=== PATIENT | female | born 1950 | race Caucasian/White ===

== ENCOUNTER → 2016-10-30 | Outpatient (CLI) | payer BC ==
[~2016-10-30] MED LIST: AMLO5TAB2 PO; ASPI-999 PO; ATENOLOL; ATOR40TA70 PO; ENAL1TAB19 PO; ENAL1TAB8 PO; ENAL5TAB PO; IBUP100T46 PO; LEG CRAMPS PO; LISI1TAB6 PO; PRV20T; TRIA1TAB42
--- NOTE | 2016-10-31 10:33 | STRESS TEST ---
PROCEDURE PHYSICIAN: LITZY VENTURA EXERCISE MYOVIEW STRESS TEST REPORT DATE OF PROCEDURE: 10/30/2016 REFERRING PHYSICIAN: Dr. Webber. INDICATION FOR THE PROCEDURE: Shortness of breath. Baseline heart rate is 59, baseline blood pressure: 159/85. Baseline EKG: Sinus rhythm with no ischemic changes. SUMMARY: The patient was injected with 10.98 mCi of technetium 99 Myoview and the resting images were obtained. Then the patient started exercising with a baseline heart rate, blood pressure, EKG mentioned above. At minute 1 and 40 seconds, the patient was injected with 28.1 mCi of technetium 99 Myoview. She was able to finish 3 minutes on standard [place] protocol, achieving maximum heart rate of 142, which is 92% of maximum expected heart rate. With peak exercise level, EKG was showing minimal nondiagnostic changes. Blood pressure was 193/83. During recovery, heart rate and blood pressure returned to baseline. EKG returned to baseline. The resting and stress images were reviewed and compared in the short axis, horizontal long axis, and vertical long axis views. Review of the images showed breast attenuation affecting the quality of the images with mild ischemia involving the mid to apical anterior wall, anterolateral wall. SSS 5, SDS 5, TID value 0.98. On the gated images, the left ventricle appeared to be normal size with normal contractility. Calculated ejection fraction 63%. CONCLUSION: 1. Fair exercise tolerance a total of 3 minutes on standard Naga protocol. Total of 4.6 METs, achieving 92% of maximum expected heart rate. 2. Appropriate heart rate and blood pressure response to exercise. Returned to baseline during recovery. 3. Breast attenuation with mild ischemia involving the mid to apical anterior wall and anterolateral wall. 4. Normal left ventricular size with normal contractility. Calculated ejection fraction 63%. Job ID: [id number] Dictated Date: 10/30/2016 17:30:38 Asphalt Raker Date: 10/31/2016 10:27:53 / gloria
== END ==
LOC: CARD 10:57
PROVIDERS: ATTEND Internal Medicine Cardiovascular Disease
DX: R07.89 Other chest pain (principal); I10 Essential (primary) hypertension; E66.9 Obesity, unspecified; R06.02 Shortness of breath
CPT/HCPCS: 78452; 93017

== ENCOUNTER 2016-11-06 06:48 | Day surgery (SDC) | payer BC ==
[2016-11-06] VITALS (11 sets, daily range): BP systolic 112–150; BP diastolic 66–91
[~2016-11-06] VITALS: Ht 167.6 cm; Wt 84.8 kg
[~2016-11-06 06:48] MED LIST changes: -AMLO5TAB2 PO; -ASPI-999 PO; -ENAL1TAB8 PO; -ENAL5TAB PO; -IBUP100T46 PO; -LEG CRAMPS PO
[2016-11-06] MEDS ORDERED: LIDOCAINE 1% INJ 20 ML (XYLOCAINE) VIAL ONE (06:49)
[2016-11-06] MEDS ORDERED: HEParin (CATH LAB) 2,000 ML IV ONE (06:49)
[2016-11-06] MEDS ORDERED: NS IV 1000 ML 1,000 ML ONE (06:49)
[2016-11-06] MEDS ORDERED: NS IV 1000 ML 1,000 ML IV SCH ×2 (07:15→09:29)
[2016-11-06 07:19] LABS: MEAN PLATELET VOLUME 11.1 FL (7.4-10.4); RED BLOOD COUNT 4.57 10^6/uL (4.35-5.85); RED CELL DISTRIBUTION WIDTH 12.3 % (10.0-14.5); WHITE BLOOD COUNT 5.8 10^3/uL (4.3-11.0)
[2016-11-06 07:20] LABS: BILIRUBIN,URINE NEGATIVE (NEGATIVE); KETONES,URINE NEGATIVE (NEGATIVE); LEUKOCYTE ESTERASE ,URINE 3+ (NEGATIVE); NITRITE,URINE NEGATIVE (NEGATIVE); PH,URINE 5 (5-9); PROTEIN,URINE NEGATIVE (NEGATIVE); UROBILINOGEN,URINE NORMAL (NORMAL)
[2016-11-06 07:30] LABS: INR 0.9 (0.8-1.4); PROTHROMBIN TIME PATIENT 11.9 SEC (12.2-14.7)
--- NOTE | 2016-11-06 07:33 | Diagnostic Imaging Report ---
INDICATION: Preop. Heart catheter. Comparison with 02/12/2013. FINDINGS: The lungs are well-aerated and clear. The heart is mildly enlarged. No evidence of pulmonary edema. No pneumothorax or pleural effusion. IMPRESSION: Mild cardiomegaly with no acute changes. Dictated by: Dictated on workstation # [id number]
[2016-11-06 07:41] LABS: ALBUMIN 4.2 G/DL (3.2-4.5); BILIRUBIN,TOTAL 0.6 MG/DL (0.1-1.0); CALCIUM 9.3 MG/DL (8.5-10.1); CREATININE SERUM 0.94 MG/DL (0.60-1.30); POTASSIUM 4.1 MMOL/L (3.6-5.0); TOTAL PROTEIN 6.9 G/DL (6.4-8.2)
[2016-11-06] MEDS ORDERED: ASPI-999 PO (08:18)
[2016-11-06] MEDS ORDERED: LEG CRAMPS PO (08:18)
[2016-11-06] MEDS ORDERED: ENAL5TAB PO (08:18)
[2016-11-06] MEDS ORDERED: IBUP100T46 PO (08:18)
[2016-11-06] MEDS ORDERED: AMLO5TAB2 PO (08:18)
[2016-11-06] MEDS ORDERED: ENAL1TAB8 PO (08:32)
[2016-11-06] MEDS ORDERED: fentaNYL INJECTION 100 MCG/2 ML AMP ONE (08:48)
[2016-11-06] MEDS ORDERED: MIDAZOLAM 5 MG/5 ML (VERSED) VIAL ONE (08:48)
--- NOTE | 2016-11-06 08:58 | Cardiac Procedure Note-CS/ASA ---
Pre-Procedure Note Pre-Op Procedure Note H&P Reviewed The H&P was reviewed, patient examined and no changes noted. Date H&P Reviewed: Nov 06, 2016 Time H&P Reviewed: 08:57 Conscious Sedation Pre-Proced Time Reviewed: 08:57 ASA Class: 3 Airway Mallampati Classification: ([place] appropriate class) I. II. III, IV Lungs Heart ASA score ASA 1: a normal healthy patient ASA 2: a patient with a mild systemic disease (mid diabetes, controlled hypertension, obesity x ASA 3: a patient with a severe systemic disease that limits activity (angina , COPD, prior Myocardial infarction) ASA 4: a patient with an incapacitating disease that is a constant threat to life (CHF, renal failure) ASA 5: a moribund patient not expected to survive 24 hrs. (ruptured aneurysm) ASA 6: a declared brain patient whose organs are being harvested. For emergent operations, add the letter E after the classification Grade 3 Sedation Plan: Analgesia, Amnesia, Plan communicated to team members, Discussed options with patient/fam, Discussed risks with patient/fam Note The patient is an appropriate candidate to undergo the planned procedure, sedation, and anesthesia. The patient immediately re-assessed prior to indication. LITZY VENTURA MD Nov 06, 2016 08:57
[2016-11-06] MEDS ORDERED: PATIENT MAY USE OWN MEDS, ALL PO SCH (09:30)
--- NOTE | 2016-11-06 09:32 | Discharge Inst-Post CATH ---
Discharge Inst-CATH Post Cardiac Cath D/C Inst Follow Up/Plan Appointment with Dr Byrne's office in 2-4 weeks CARDIAC CATH DISCHARGE INSTRUCTIONS *Hold Metformin for 48 hours post heart cath. ACTIVITY * Go Home directly and rest. * Limit activity of the leg (or wrist if it was used) for 7 days including aerobics, swimming, jogging, bicycling, etc. * Restrict stair-climbing for 7 days if possible, if not, climb up with your non -cath leg, then bring together on the same step. * Avoid lifting, pushing, pulling or excessive movement of the affected extremity for 7 days. * Customary sexual activity may be resumed after 2 days-use caution not to use a position that strains or causes pain to the affected extremity. * No driving for 24 hours. * NO SMOKING. * Avoid straining for bowel movements for 7 days. * Gentle walking on level ground is allowed. * Returning to work will depend on the type of procedure and the results. Your doctor will discuss this with you. CALL YOUR DOCTOR FOR ANY OF THE FOLLOWING: *If bleeding from the puncture site occurs- Apply gentle pressure to site with clean cloth and call your doctor or EMS. * If a knot or lump forms under the skin, increases in size, or causes pain. * If bruising appears to be worsening or moving further down your leg instead of disappearing. * Temperature above 101 F. CARE OF YOUR GROIN INCISION; * Bruising or purple discoloration of the skin near the puncture site is common. * You may shower only, no bathtub bathing for 5 days. Be careful to avoid slipping as your leg may feel stiff. * If a closure device was used on your femoral artery, please see the attached guide regarding care of the device and your leg. * REMOVE the dressing from your groin the next day after your procedure in the shower. CARE OF YOUR WRIST INCISION; * Bruising or purple discoloration of the skin near the puncture site is common. * You may shower. * DO NOT submerge wrist. * Remove dressing in 24 hours. LITZY BYRNE MD Nov 06, 2016 09:32
--- NOTE | 2016-11-07 09:36 | CARDIAC CATHETERIZATION ---
DATE OF SERVICE: 11/06/2016 CARDIAC CATHETERIZATION REFERRING PHYSICIAN: Dr. Evita Webber BRIEF HISTORY: The patient is a 66-year-old lady with a history of coronary artery disease, hypertension, hyperlipidemia, has been having recurrent chest pain. Had an abnormal stress test. She was scheduled for cardiac catheterization. PROCEDURE NOTE: After explaining the procedure to the patient, all the pros and cons were explained, all questions were answered. The patient signed the consent and then she was placed on the cardiac catheterization laboratory. Right groin was prepped in a sterile fashion, local anesthesia applied to the right groin. A 6-[place] sheath was placed in the right femoral artery. Combination of right and left Michelle catheter were used to access the right and left coronary system. Multiple views were obtained. A pigtail catheter advanced into the left ventricular cavity. Pressure was measured. No left ventriculogram was done. At the end of the procedure, sheath was removed, MYNX device deployed, hemostasis achieved. FINDINGS: Hemodynamics: LV pressure 116/6, end diastolic pressure of 6, aortic pressure 114/53, mean of 79, no significant gradient across the aortic valve. TOTAL CONTRAST USED: 45 mL TOTAL RADIATION DOSE: 21 mGy ANATOMY: 1. Left main coronary artery is bifurcating into LAD and circumflex artery with no obstructive disease. 2. Left anterior descending in moderate in size with mild disease, no significant obstructive disease. 3. Right coronary artery is moderate is size with mild disease, no significant obstructive disease. 4. No left ventriculogram was done. Pressure was normal. IN CONCLUSION: 1. Mild coronary artery disease, no significant obstructive disease. 2. Normal left ventricular end diastolic pressure. DISCUSSION AND RECOMMENDATION: Medical therapy is recommended. No intervention is warranted. FINAL DIAGNOSES: 1. Chest pain nonspecific etiology. 2. Coronary artery disease. 3. Hypertension. 4. Hyperlipidemia. Job ID: [id number] DocumentID: [id number] Dictated Date: 11/06/2016 10:34:53 Indian Blanket Weaver Date: 11/06/2016 11:17:52 Dictated By: LITZY VENTURA MD
== END 2016-11-06 13:50 | disposition home or self-care (01) ==
LOC: CATH 06:48 → SURG 09:44 → CATH 13:50
PROVIDERS: ATTEND Internal Medicine Cardiovascular Disease
DX: R94.39 Abnormal result of other cardiovascular function study (principal); R07.89 Other chest pain; I25.10 Atherosclerotic heart disease of native coronary artery without angina pectoris; I10 Essential (primary) hypertension; E78.5 Hyperlipidemia, unspecified; R06.02 Shortness of breath; E66.9 Obesity, unspecified; Z79.899 Other long term (current) drug therapy; Z82.49 Family history of ischemic heart disease and other diseases of the circulatory system; Z68.30 Body mass index [BMI] 30.0-30.9, adult
CPT/HCPCS: 36415; 71010; 80053; 80061; 81000; 85027; 85610; 85730; 87081; 87088; 93005; 93458

== ENCOUNTER → 2016-12-04 | Outpatient (CLI) | payer BC ==
[~2016-12-04] MED LIST changes: +AMLO5TAB2 PO; +ASPI-999 PO; +ENAL1TAB8 PO; +ENAL5TAB PO; +IBUP100T46 PO; +LEG CRAMPS PO
--- NOTE | 2016-12-04 16:40 | Diagnostic Imaging Report ---
PROCEDURE: MRI right joint lower extremity without contrast. TECHNIQUE: Multiplanar, multisequence non contrast-enhanced MRI of the right lower extremity was accomplished. INDICATION: Weakness. Lateral right knee swelling. FINDINGS: There is a small to moderate suprapatellar effusion. There is no Galeas's cyst. The extensor mechanism demonstrates mild tendinosis in the distal quadriceps tendon with no high-grade tear. The ACL and the PCL are intact. There is a complex tear involving the body of the lateral meniscus with extension into the adjacent aspect of the posterior and anterior horns. The medial meniscus demonstrates a focal radial tear involving the body of the meniscus. The lateral collateral ligament complex and the MCL appear unremarkable. There is a ganglion cyst seen around the popliteus tendon measuring 1.8 x 0.9 x 0.7 cm. The muscle signal around the knee however appears unremarkable. There is about 75% cartilage thinning in the lateral compartment most prominent posteriorly. The medial compartment demonstrates mild to moderate thinning with cartilage fissuring. The patellofemoral compartment demonstrates moderate thinning of the cartilage involving the medial facets. The lateral facet of the patella has a relatively preserved cartilage. No significant bone marrow contusion. There is a 6 mm cystic change however seen in the medial tibial plateau posteriorly near the insertion of the PCL and the posterior root of the medial meniscus. IMPRESSION: 1. Complex tear involving the body of the lateral meniscus and the adjacent portions of the posterior and anterior horns. 2. Focal radial tear in the body of the medial meniscus. 3. Osteoarthritis changes with areas of cartilage thinning as described. Dictated by: Dictated on workstation # [id number]
== END ==
LOC: RAD 15:15
PROVIDERS: ATTEND Family Medicine
DX: M23.241 Derangement of anterior horn of lateral meniscus due to old tear or injury, right knee (principal); M23.251 Derangement of posterior horn of lateral meniscus due to old tear or injury, right knee; M17.11 Unilateral primary osteoarthritis, right knee
CPT/HCPCS: 73721

== ENCOUNTER → 2017-02-06 | Outpatient (CLI) | payer BC ==
--- NOTE | 2017-02-12 12:15 | Diagnostic Imaging Report ---
Bilateral screening mammogram 2D views with tomosynthesis The current study was also evaluated with a Computer Aided Detection (CAD) system. INDICATION: Screening. No current complaints stated on the questionnaire. COMPARISON: 08/04/15 FINDINGS: The breasts are composed of scattered fibroglandular densities. Benign-appearing calcifications are seen in right breast upper aspect. Allowing for technique and positional differences, no suspicious change is seen. IMPRESSION: No significant change. ACR BI-RADS Category 2: Benign findings. Result letter will be mailed to the patient. Note: At least 10% of breast cancer is not imaged by mammography. Dictated by: Dictated on workstation # [id number]
== END ==
LOC: RAD 09:48
PROVIDERS: ATTEND Nurse Practitioner Family
DX: Z12.31 Encounter for screening mammogram for malignant neoplasm of breast (principal)
CPT/HCPCS: 77067

== ENCOUNTER 2017-11-17 09:00 | Outpatient (CLI) | payer BC ==
[~2017-11-17] VITALS: Ht 167.6 cm; Wt 84.8 kg
[2017-11-17] MEDS ORDERED: ATOR40TA70 PO (09:11)
== END 2017-11-17 09:15 ==
LOC: PREOP 09:00
PROVIDERS: ATTEND Internal Medicine
DX: Z01.818 Encounter for other preprocedural examination (principal); Z12.11 Encounter for screening for malignant neoplasm of colon

== ENCOUNTER 2017-11-21 08:40 | Day surgery (SDC) | payer MEDICARE, OTHER ==
--- NOTE | 2017-11-07 13:42 | HISTORY AND PHYSICAL ---
DATE OF SERVICE: SCREENING COLONOSCOPY SUMMARY HISTORY OF PRESENT ILLNESS: Mrs. aDle is a 67-year-old white female, referred by Dr. Webber for screening colonoscopy. She had had one previous colonoscopy done in 2011, at which time she had one tubular adenoma removed from the proximal ascending colon. She also had a hyperplastic polyp removed from the rectosigmoid junction and an inflammatory polyp removed from the mid transverse colon. She is not aware of any family history for colon cancer. She reports that she has otherwise been feeling well and voiced no complaints. She has noted no bright red blood per rectum or melena, has had no abdominal pain. Denies bowel habit change. PAST MEDICAL HISTORY: Significant for hypertension and hyperlipidemia with no known history of coronary artery disease. MEDICATIONS ON ADMISSION: Include atorvastatin 40 mg daily, enalapril/hydrochlorothiazide 5/12.5 mg daily and a baby aspirin daily, and she is also taking amlodipine unknown dose daily. She underwent cardiac catheterization per her report in October of 2016, which revealed no evidence for obstruction and preserved systolic function. PAST SURGICAL HISTORY: In November 2016, she underwent arthroscopic surgery of her right knee for meniscal tear. She apparently has significant arthritis and was recommended that she consider total knee replacement that she has been holding off. FAMILY HISTORY: She recently lost her sister at the age of 62 secondary to alcohol-related cirrhosis complications. She had a brother who at the age of 11 secondary to leukemia. 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 PHYSICAL EXAMINATION: GENERAL: Reveals a well appearing white female, in no acute distress. VITAL SIGNS: Weight is 187 pounds, unchanged from six years ago. Blood pressure 120/80, heart rate 72 and regular. HEENT: Unremarkable. She has a Mallampati class 2 oropharyngeal configuration with no evidence for erythema. NECK: Revealed no JVD, adenopathy or bruits. CHEST: Clear to auscultation. CARDIOVASCULAR: Reveals a regular rate and rhythm without murmur, S3 or S4. ABDOMEN: Soft, supple without mass, organomegaly or tenderness. No bruits are noted and bowel sounds are noted in all four quadrants. EXTREMITIES: Reveal no cyanosis, clubbing or edema. ASSESSMENT: The patient was set up for screening colonoscopy on 11/21/2016. Prep instructions with Suprep kit were given and questions were answered. She is to abstain from aspirin starting today and continue her other medications unchanged. I thank you for the referral of this pleasant lady. Job ID: [id number] DocumentID: [id number] Dictated Date: 11/07/2017 12:27:32 Breaker Machine Tender Date: 11/07/2017 13:23:36 Dictated By: AYSE FINCH MD
[~2017-11-21] VITALS: Ht 167.6 cm; Wt 84.8 kg
[2017-11-21] MEDS ORDERED: LACTATED RINGERS 1,000 ML IV ONE (09:01)
[2017-11-21] MEDS ORDERED: LACTATED RINGERS 1,000 ML IV SCH (09:15)
[2017-11-21 09:20] VITALS: BP 157/86
[2017-11-21] MEDS ORDERED: LIDOCAINE JELLY 2% (XYLOCAINE) 5 ML TUBE ONE (09:30)
[2017-11-21] MEDS ORDERED: PROPOFOL INJECTION 50 ML IV ONE (09:32)
--- NOTE | 2017-11-21 09:35 | Pre-Op Note & Conscious Sedat ---
Pre-Operative Progress Note H&P Reviewed The H&P was reviewed, patient examined and no changes noted. Date H&P Reviewed: November 21, 2017 Time H&P Reviewed: 09:35 Conscious Sedation Pre-Proced ASA Class: 2 Airway Mallampati Classification: ([place] appropriate class) I. II. III, IV Lungs Heart ASA score ASA 1: a normal healthy patient ASA 2: a patient with a mild systemic disease (mid diabetes, controlled hypertension, obesity ASA 3: a patient with a severe systemic disease that limits activity (angina , COPD, prior Myocardial infarction) ASA 4: a patient with an incapacitating disease that is a constant threat to life (CHF, renal failure) ASA 5: a moribund patient not expected to survive 24 hrs. (ruptured aneurysm) ASA 6: a declared brain patient whose organs are being harvested. For emergent operations, add the letter E after the classification Grade 2 Sedation Plan: Analgesia, Amnesia, Plan communicated to team members, Discussed options with patient/fam, Discussed risks with patient/fam Note The patient is an appropriate candidate to undergo the planned procedure, sedation, and anesthesia. The patient immediately re-assessed prior to indication. AYSE FINCH MD November 21, 2017 09:35
[2017-11-21 10:30] VITALS: BP 155/92
[2017-11-21] MEDS ORDERED: LIDOCAINE JELLY 2% (XYLOCAINE) 5 ML TUBE TOP ONE (10:30)
--- NOTE | 2017-11-21 10:30 | Anesthesia-General Post-Op ---
MAC Patient Condition Mental Status/LOC: Same as Preop Cardiovascular: Satisfactory Nausea/Vomiting: Absent Respiratory: Satisfactory Pain: Controlled Complications: Absent Post Op Complications Complications None Follow Up Care/Instructions Patient Instructions None needed. Anesthesiology Discharge Order Discharge Order Patient is doing well, no complaints, stable vital signs, no apparent adverse anesthesia problems. No complications reported per nursing. HAMMAD VINSON CRNA November 21, 2017 10:29
[2017-11-21 11:00] VITALS: BP 154/85
[2017-11-21 11:22] VITALS: BP 154/85
--- NOTE | 2017-11-21 19:07 | OPERATIVE REPORT ---
DATE OF SERVICE: 11/21/2017 COLONOSCOPY SUMMARY INDICATION FOR THE PROCEDURE: Screening colonoscopy. The patient was placed in the left lateral decubitus position. Prior to undergoing colonoscopy, a digital rectal evaluation was performed. The anal sphincter tone was normal and the perianal reflexes intact. No abnormalities noted on digital inspection of anal canal or distal rectal vault. The colonoscope was then inserted into the rectum and under direct visualization advanced to the cecum. The cecum was identified by identification of the ileocecal valve and cecal strap. Photographic documentation was obtained. Careful inspection was made as the colonoscope was withdrawn. FINDINGS: There is no evidence for internal or external hemorrhoids. Present in the distal rectum was a 3 mm sessile hyperplastic appearing polyp. It was biopsied, ablated and submitted for histopathology. The remainder of the rectum, sigmoid colon, descending colon, splenic flexure, transverse colon, hepatic flexure, ascending colon and cecum were unremarkable without evidence for diverticular disease. ASSESSMENT: One diminutive hyperplastic polyp was removed via hot forceps with ablation from the distal rectum. This was an otherwise normal colonoscopy to the cecum. Would advocate consideration for repeat screening colonoscopy in 10 years. Thank you for the referral of this pleasant lady. Job ID: [id number] DocumentID: [id number] Dictated Date: 11/21/2017 11:50:28 Socket Welder Helper Date: 11/21/2017 19:06:28 Dictated By: AYSE FINCH MD
== END 2017-11-21 11:22 | disposition home or self-care (01) ==
LOC: ENDO 08:40
PROVIDERS: ATTEND Internal Medicine
DX: Z12.11 Encounter for screening for malignant neoplasm of colon (principal); K62.1 Rectal polyp; I10 Essential (primary) hypertension; I34.0 Nonrheumatic mitral (valve) insufficiency; Z79.899 Other long term (current) drug therapy
CPT/HCPCS: 88305

== ENCOUNTER → 2018-11-23 | Outpatient (CLI) | payer MEDICARE, OTHER ==
[~2018-11-23] MED LIST changes: -AMLO5TAB2 PO; +AMLO5TAB9 PO
--- NOTE | 2018-11-23 12:44 | Diagnostic Imaging Report ---
INDICATION: Routine screening. COMPARISON: 02/06/2017 and 08/04/2015. TECHNIQUE: 2D and 3D bilateral screening mammography was performed with CAD. FINDINGS: Scattered fibroglandular densities are identified bilaterally. The partially calcified nodule in the upper right breast is stable. No new masses or malignant appearing microcalcifications are seen. The axillae are unremarkable. IMPRESSION: No mammographic features suspicious for malignancy are identified. ACR BI-RADS Category 2: Benign findings. Result letter will be mailed to the patient. Note: At least 10% of breast cancer is not imaged by mammography. Dictated by: Dictated on workstation # [id number]
== END ==
LOC: RAD 08:25
PROVIDERS: ATTEND Nurse Practitioner Family
DX: Z12.31 Encounter for screening mammogram for malignant neoplasm of breast (principal)
CPT/HCPCS: 77067

== ENCOUNTER → 2020-02-02 | Outpatient (CLI) | payer MEDICARE, OTHER ==
[~2020-02-02] MED LIST changes: -ENAL5TAB PO; +ENLP5T PO
--- NOTE | 2020-02-03 09:29 | Diagnostic Imaging Report ---
INDICATION: Routine screening. Comparison is made with prior mammogram 11/23/2018 and 02/06/2017. 2-D and 3-D bilateral screening mammography was performed with CAD. Both breasts remain heterogeneously dense, limiting the sensitivity of mammography. Calcified nodule in the upper right breast is stable. No new mass or malignant appearing microcalcifications are identified. Axillae are unremarkable. IMPRESSION: BI-RADS Category 2 No mammographic features suspicious for malignancy are identified. ACR BI-RADS Category 2: Benign findings. Result letter will be mailed to the patient. Note: At least 10% of breast cancer is not imaged by mammography. Dictated by: Dictated on workstation # [id number]
== END ==
LOC: RAD 15:05
PROVIDERS: ATTEND Family Medicine
DX: Z12.31 Encounter for screening mammogram for malignant neoplasm of breast (principal)
CPT/HCPCS: 77063; 77067

== ENCOUNTER → 2021-02-21 | Outpatient (CLI) | payer MEDICARE, OTHER ==
[~2021-02-21] MED LIST changes: +AMLO-250 PO; -AMLO5TAB9 PO
--- NOTE | 2021-02-21 12:10 | Diagnostic Imaging Report ---
INDICATION: Routine screening. Comparison is made with prior mammogram from 02/02/2020 and 11/23/2018. 2-D and 3-D bilateral screening mammography was performed with CAD. Both breast are heterogeneously dense, limiting the sensitivity of mammography. The parenchymal pattern is stable. There are benign calcifications. No mass or malignant-appearing microcalcifications are seen. Axillae are unremarkable. IMPRESSION: BI-RADS Category 2 No mammographic features suspicious for malignancy are identified. ACR BI-RADS Category 2: Benign findings. Result letter will be mailed to the patient. Note: At least 10% of breast cancer is not imaged by mammography. Dictated by: Dictated on workstation # [id number]
== END ==
LOC: RAD 09:33
PROVIDERS: ATTEND Nurse Practitioner Family
DX: Z12.31 Encounter for screening mammogram for malignant neoplasm of breast (principal)
CPT/HCPCS: 77063; 77067

== ENCOUNTER → 2022-04-02 | Outpatient (CLI) | payer MEDICARE, OTHER ==
[~2022-04-02] MED LIST changes: +ENAL1TAB14 PO; -ENAL1TAB8 PO
--- NOTE | 2022-04-02 12:53 | Diagnostic Imaging Report ---
Indication: Routine screening. Comparison is made with prior mammogram from 02/21/2021 and 02/02/2020. 2-D and 3-D bilateral screening mammography was performed with CAD. Both breasts are heterogeneously dense, limiting the sensitivity of mammography. The parenchymal pattern is stable. Calcified nodule in the upper right breast is stable. No new mass or malignant appearing microcalcifications are seen. Axillae are unremarkable. IMPRESSION: BI-RADS Category 2 No mammographic features suspicious for malignancy are identified. ACR BI-RADS Category 2: Benign findings. Result letter will be mailed to the patient. Note: At least 10% of breast cancer is not imaged by mammography. Dictated by: Dictated on workstation # [id number]
--- NOTE | 2022-04-02 15:43 | Diagnostic Imaging Report ---
INDICATION: Postmenopausal state COMPARISON: None available, baseline examination. FINDINGS: AP Spine L1-L4: [BMD (g/cm2): 0.862] [T-Score: -2.8] [Z-Score: -1.8] [BMD Previous: n/a] [BMD % Change: n/a] LT Hip Neck: [BMD (g/cm2): 0.732] [T-Score: -2.2] [Z-Score: -0.9] LT Hip Total: [BMD (g/cm2):0.702] [T-Score:-2.4] [Z-Score: -1.4] [BMD Previous: n\a] [BMD % Change: n\a] RT Hip Neck: [BMD (g/cm2):0.737] [T-Score:-2.2] [Z-Score:-0.9] RT Hip Total: [BMD (g/cm2):0.690] [T-score:-2.5] [Z-Score:-1.5] [BMD Previous:n/a] [BMD % Change:n/a] *Indicates significant change from prior examination based on 95% confidence level. World Health Organization criteria for BMD interpretation classify patients as Normal (T-score at or above -1.0), Osteopenic (T-score between -1.0 and -2.5) or Osteoporotic (T-score at or below -2.5). LIMITATIONS AND MODIFICATION: None. FRACTURE RISK (FRAX SCORE): FRAX score is not calculated given underlying osteoporosis. IMPRESSION: 1. Osteoporosis. 2. Baseline examination. 3. See below National Osteoporosis Foundation guidelines on when to potentially initiate pharmacologic therapy. Based on the National Osteoporosis Foundation Guidelines, pharmacologic treatment should be initiated in any of the following, unless clinical conditions suggest otherwise: * Any patient with prior fragility fracture of the hip or vertebrae. A spine fracture indicates 5X risk for subsequent spine fracture and 2X risk for subsequent hip fracture. * Osteoporosis (T-score <-2.5). * Postmenopausal women and men age 50 and older with low bone mass/osteopenia (T-score between -1.0 and -2.5) by DXA and 10-year major osteoporotic fracture greater than 20% or a 10-year probability of hip fracture greater than 3%. These fracture risks are supplied above in the FRAX score, if applicable. * Clinician judgement and/or patient preferences may indicate treatment for people with 10-year fracture probabilities above or below these levels. Dictated by: Dictated on workstation # [id number]
== END ==
LOC: RAD 09:16
PROVIDERS: ATTEND Nurse Practitioner Family
DX: Z12.31 Encounter for screening mammogram for malignant neoplasm of breast (principal); Z78.0 Asymptomatic menopausal state; M81.0 Age-related osteoporosis without current pathological fracture
CPT/HCPCS: 77063; 77067; 77080

== ENCOUNTER → 2023-05-26 | Outpatient (CLI) | payer MEDICARE ==
[~2023-05-26] MED LIST changes: +ENAL-66 PO; -ENLP5T PO
--- NOTE | 2023-05-26 16:36 | Diagnostic Imaging Report ---
INDICATION: Routine screening. COMPARISON: 04/02/2022 and 02/21/2021. TECHNIQUE: 2D and 3D bilateral screening mammography was performed with CAD. FINDINGS: The calcified nodule in the upper right breast is stable. No new mass or malignant-appearing microcalcifications are identified. The axillae are unremarkable. IMPRESSION: No mammographic features suspicious for malignancy are identified. ACR BI-RADS Category 2: Benign findings. Result letter will be mailed to the patient. Note: At least 10% of breast cancer is not imaged by mammography. Dictated by: Dictated on workstation # [id number]
== END ==
LOC: RAD 10:11
PROVIDERS: ATTEND Family Medicine
DX: Z12.31 Encounter for screening mammogram for malignant neoplasm of breast (principal)
CPT/HCPCS: 77063; 77067

== ENCOUNTER 2023-06-11 05:44 | Outpatient (CLI) | payer MEDICARE ==
[~2023-06-11] VITALS: Ht 167.7 cm; Wt 90.5 kg
--- NOTE | 2023-06-11 06:30 | HISTORY AND PHYSICAL ---
COLONOSCOPY HISTORY AND PHYSICAL HISTORY OF PRESENT ILLNESS: The patient 72-year-old white female referred for screening colonoscopy. She has positive family history for colon cancer, index case being a cousin recently diagnosed with stage IV colon cancer per her report. She also has a past history of colon polyps. Her last performed colonoscopy on her [id number] years ago, at which time she had a hyperplastic polyp removed from the distal rectum. Previous colonoscopy in 2011, she had several tubular adenomas removed. She denies bright red blood per rectum, melena, change in bowel habits, change in weight or abdominal pain. PAST MEDICAL HISTORY: Significant for hypertension and hyperlipidemia with no known history of coronary disease. FAMILY HISTORY: As noted in the HPI. PAST SURGICAL HISTORY: She underwent arthroscopic surgery for right meniscal tear repair in 11/2016. FAMILY HISTORY: As noted in the HPI. She had a sister who at the age 62 of alcohol-related cirrhotic complications and had a brother who at the age of 11 secondary to leukemia. 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 No significant alcohol consumption. REVIEW OF SYSTEMS: CONSTITUTIONAL: Denies night sweats, chills, fever or change in weight. PULMONARY: Denies cough, wheezing or shortness of breath. CARDIOVASCULAR: Denies chest pain, orthopnea, PND, pedal edema or syncope. GASTROINTESTINAL: As noted in the HPI. PHYSICAL EXAMINATION: GENERAL: Reveals a pleasant white female, appeared to be in no acute distress. VITAL SIGNS: Weight 199 pounds, blood pressure 120/70, heart rate 70 and regular. HEENT: Unremarkable. Sclerae nonicteric. No evidence for pallor. CHEST: Clear to auscultation. CARDIOVASCULAR: Reveals regular rate and rhythm without murmur, S3, or S4. ABDOMEN: Reveals no mass, organomegaly, or tenderness. Bowel sounds are positive. No bruits noted. ASSESSMENT AND PLAN: The patient is being set up for screening colonoscopy. Past history of adenomatous colon polyps and a family history for colon cancer, index case being a cousin, recently diagnosed with stage IV colon cancer. Prep instructions were given and questions were answered. I thank you for the referral of this pleasant lady. Job ID: [id number] DocumentID: [id number] Dictated Date: 05/26/2023 17:22:28 Short Goods Drier Date: 05/26/2023 17:42:00 Dictated By: AYSE FINCH MD
== END 2023-06-16 12:20 | disposition home or self-care (01) ==
LOC: PREOP 05:44
PROVIDERS: ATTEND Internal Medicine
DX: Z01.818 Encounter for other preprocedural examination (principal)

== ENCOUNTER 2023-06-20 07:12 | Day surgery (SDC) | payer MEDICARE, OTHER ==
[~2023-06-20] VITALS: Ht 167.7 cm; Wt 90.5 kg
[2023-06-20] MEDS ORDERED: LACTATED RINGERS 1,000 ML 1,000 ML IV STA (07:13)
--- NOTE | 2023-06-20 07:31 | Pre-Op Note & Conscious Sedat ---
Pre-Operative Progress Note Date H&P Reviewed: Jun 20, 2023 Time H&P Reviewed: 07:30 History & Physical: H&P Reviewed, Patient Examed, No changes noted Pre-Op Diagnosis: screening Moderate Sedation PreProcedure ASA Score 2 Airway Lungs Heart ASA score ASA 1: a normal healthy patient ASA 2: a patient with a mild systemic disease (mid diabetes, controlled hypertension, obesity ASA 3: a patient with a severe systemic disease that limits activity (angina, COPD, prior Myocardial infarction) ASA 4: a patient with an incapacitating disease that is a constant threat to life (CHF, renal failure) ASA 5: a moribund patient not expected to survive 24 hrs. (ruptured aneurysm) ASA 6: a declared brain- patient whose organs are being harvested. For emergent operations, add the letter E after the classification Mallampati Classification Grade 2 Sedation Plan Analgesia, Amnesia, Plan communicated to team members, Discussed options with patient/fam, Discussed risks with patient/fam The patient is an appropriate candidate to undergo the planned procedure, sedation, and anesthesia. The patient immediately re-assessed prior to indication. AYSE FINCH MD Jun 20, 2023 07:31
[2023-06-20 07:48] VITALS: BP 137/66
[2023-06-20 08:35] VITALS: BP 103/57
--- NOTE | 2023-06-20 08:36 | Progress Note-Post Operative ---
Post-Procedure Note Physician (s)/Service Desk Technician (s) Physician AYSE FINCH MD Pre-Procedure Diagnosis Pre-Procedure Diagnosis: screening Post-Procedure Diagnosis Post-operative diagnosis: Prior to undergoing colonoscopy digital rectal evaluation was performed. Anal sphincter tone was normal and the perianal reflexes intact. No abnormalities noted on digital inspection of the anal canal or distal rectal vault. The colonoscope was then inserted into the rectum and under direct visualization advanced to the cecum. The cecum was identified by identification of the ileocecal valve and cecal strap. Photographic documentation was obtained. A careful inspection was made as the colonoscope withdrawn. The quality the prep was good. Findings: There are no evidence for internal or external hemorrhoids and the rectum was unremarkable. Several medium sized diverticula were noted in the proximal sigmoid colon without evidence for diverticulitis no other abnormalities are noted. The descending colon splenic flexure transverse colon hepatic flexure ascending colon and cecum were unremarkable with no evidence for neoplasia. A/P 1. Several medium sized diverticulum were noted in the proximal sigmoid colon with an otherwise normal colonoscopy to the cecum. Considering currently that there is only 1 reported second-degree relative with colon cancer would advocate consideration for repeat screening in 10 years pending health status at that time. I thank you for the troubles pleasant lady sincerely, Ayse Finch MD. CC: Dr. Evita Webber MD. AYSE FINCH MD Jun 20, 2023 08:36
[2023-06-20 08:40] VITALS: BP 100/58
[2023-06-20 08:51] VITALS: BP 100/58
[2023-06-20 08:59] VITALS: BP 100/58
--- NOTE | 2023-06-20 10:30 | Anesthesia-General Post-Op ---
MAC Patient Condition Mental Status/LOC: Same as Preop Cardiovascular: Satisfactory Nausea/Vomiting: Absent Respiratory: Satisfactory Pain: Controlled Complications: Absent Post Op Complications Complications None Follow Up Care/Instructions Patient Instructions None needed. Anesthesiology Discharge Order Discharge Order Patient is doing well, no complaints, stable vital signs, no apparent adverse anesthesia problems. No complications reported per nursing. HAMMAD VINSON CRNA Jun 20, 2023 10:29
--- NOTE | 2023-06-25 09:03 | HISTORY AND PHYSICAL ---
COLONOSCOPY HISTORY AND PHYSICAL HISTORY OF PRESENT ILLNESS: The patient 72-year-old white female referred for screening colonoscopy. She has positive family history for colon cancer, index case being a cousin recently diagnosed with stage IV colon cancer per her report. She also has a past history of colon polyps. Her last performed colonoscopy on her [id number]-[id number]-tcnn years ago, at which time she had a hyperplastic polyp removed from the distal rectum. Previous colonoscopy in 2011, she had several tubular adenomas removed. She denies bright red blood per rectum, melena, change in bowel habits, change in weight or abdominal pain. PAST MEDICAL HISTORY: Significant for hypertension and hyperlipidemia with no known history of coronary disease. FAMILY HISTORY: As noted in the HPI. PAST SURGICAL HISTORY: She underwent arthroscopic surgery for right meniscal tear repair in 11/2016. FAMILY HISTORY: As noted in the HPI. She had a sister who at the age 62 of alcohol-related cirrhotic complications and had a brother who at the age of 11 secondary to leukemia. 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 No significant alcohol consumption. REVIEW OF SYSTEMS: CONSTITUTIONAL: Denies night sweats, chills, fever or change in weight. PULMONARY: Denies cough, wheezing or shortness of breath. CARDIOVASCULAR: Denies chest pain, orthopnea, PND, pedal edema or syncope. GASTROINTESTINAL: As noted in the HPI. PHYSICAL EXAMINATION: GENERAL: Reveals a pleasant white female, appeared to be in no acute distress. VITAL SIGNS: Weight 199 pounds, blood pressure 120/70, heart rate 70 and regular. HEENT: Unremarkable. Sclerae nonicteric. No evidence for pallor. CHEST: Clear to auscultation. CARDIOVASCULAR: Reveals regular rate and rhythm without murmur, S3, or S4. ABDOMEN: Reveals no mass, organomegaly, or tenderness. Bowel sounds are positive. No bruits noted. ASSESSMENT AND PLAN: The patient is being set up for screening colonoscopy. Past history of adenomatous colon polyps and a family history for colon cancer, index case being a cousin, recently diagnosed with stage IV colon cancer. Prep instructions were given and questions were answered. I thank you for the referral of this pleasant lady. Job ID: [id number] DocumentID: [id number] Dictated Date: 05/26/2023 17:22:28 Art Educator Date: 05/26/2023 17:42:00 Dictated By: AYSE FINCH MD <Dictated by AYSE FINCH MD> <Electronically signed by AYSE FINCH MD> 06/16/23 0946 [facility]
== END 2023-06-20 09:10 | disposition home or self-care (01) ==
LOC: ENDO 07:12
PROVIDERS: ATTEND Internal Medicine
DX: Z12.11 Encounter for screening for malignant neoplasm of colon (principal); Z80.0 Family history of malignant neoplasm of digestive organs; K57.30 Diverticulosis of large intestine without perforation or abscess without bleeding; Z86.010 Personal history of colon polyps